=== PATIENT | female | born 1985 | race Caucasian/White ===

== ENCOUNTER 2019-04-02 09:26 | Day surgery (SDC) | payer BC ==
[~2019-04-02] VITALS: Ht 162.6 cm; Wt 112.0 kg
[2019-04-02] VITALS (7 sets, daily range): BP systolic 107–137; BP diastolic 68–86; PULSE 78–94; TEMP 98–98.4
[2019-04-02] MEDS ORDERED: ZOFRAN ODT4 MG PO (10:03)
[2019-04-02] MEDS ORDERED: NORCO 325 MG-51 TAB PO ×2 (10:03→12:28)
[2019-04-02] MEDS ORDERED: GICOCKTAIL PO (10:04)
[2019-04-02] MEDS ORDERED: PRILOTC PO (10:05)
[2019-04-02] MEDS ORDERED: PEPCID 20MG TAB20 MG PO (10:05)
[2019-04-02] MEDS ORDERED: ADVIL200 MG PO (10:06)
[2019-04-02] MEDS ORDERED: MOTRIN 600600 MG/TAB PO (12:28)
[2019-04-02] MEDS ORDERED: COLACE 100100 MG/CAP PO (12:28)
--- NOTE | 2019-04-02 13:00 | NUR ---
Returns to room 7 per cart from PACU and arouses to verbal stimuli. Vargas set dressing dry on abdomen x4. Denies pain or nausea. IV fluids infusing and site is free of redness. Siderails up x2 and call light in reach. Allowed to rest. Mother in room.
--- NOTE | 2019-04-02 13:15 | NUR ---
Allowed to rest and mother in room. IV fluids infusing.
--- NOTE | 2019-04-02 13:30 | NUR ---
Continues to rest without complaints of pain or nausea.
--- NOTE | 2019-04-02 13:45 | NUR ---
Continues to rest and denies nausea.
--- NOTE | 2019-04-02 14:00 | NUR ---
Room air sats 96%. IV fluids infusing.
--- NOTE | 2019-04-02 14:20 | NUR ---
Assisted up to the bathroom and gait is steady. States that she is having epigastric pain. Ambulated in the hallway and gait is steady. Returns to room and assisted onto cart. Allowed to rest.
--- NOTE | 2019-04-02 14:24 | NUR ---
[place] 5mg one tab given for complaints of pain at 410. Eating chocolate pudding and drinking water.
--- NOTE | 2019-04-02 15:15 | NUR ---
Drinking milk and denies pain or nausea. IV discontinued and given dismissal instructions. Mother in room and both patient and parent verbalize understanding of home cares. Assisted with dressing.
--- NOTE | 2019-04-02 15:30 | NUR ---
Patient was dismissed to home per private vehicle driven by spouse and taken to the front door per wheelchair with instructions in hand.
== END 2019-04-02 15:30 | disposition home or self-care (01) ==
LOC: SDCO 09:26
DX: K80.10 Calculus of gallbladder with chronic cholecystitis without obstruction (principal); K82.A1 Gangrene of gallbladder in cholecystitis; K22.2 Esophageal obstruction; Z82.3 Family history of stroke; E66.9 Obesity, unspecified; Z68.41 Body mass index [BMI] 40.0-44.9, adult; K22.0 Achalasia of cardia; K21.9 Gastro-esophageal reflux disease without esophagitis
CPT/HCPCS: J1170; J1885; J2405; J2704; J3010; J7120; Q9967